=== PATIENT | male | born 1955 | race Caucasian/White ===

== ENCOUNTER 2021-04-28 18:23 | Emergency (ER) | payer OTHER ==
[~2021-04-28] VITALS: Ht 175.3 cm; Wt 72.7 kg
[2021-04-28 19:02] VITALS: Ht 175.3 cm; Wt 72.7 kg
[2021-04-28 19:54] LABS: BILIRUBIN 1+ (NEGATIVE); KETONE NEGATIVE (NEGATIVE); NITRITE NEGATIVE (NEGATIVE); UROBILINOGEN 8 mg/dL (< 2)
[2021-04-28 19:55] LABS: BACTERIA MODERATE HPF (NONE SEEN); SQUAMOUS EPITHELIAL OCC HPF (0-4); WHITE CELLS - URINE RARE HPF (0-1)
[2021-04-28 20:33] LABS: BASOPHILS 0.4 % (0-2); EOSINOPHILS 0 % (0-7); HEMATOCRIT 32.4 % (42.0-54.0); HEMOGLOBIN 11.3 g/dL (13.5-17.5); LYMPHOCYTES 15.1 % (15-50); MCH 28.4 pg (26.0-34.0); MCHC 34.7 g/dL (31.0-37.0); MCV 81.8 fL (80.0-100.0); MEAN PLATELET VOLUME 8.6 fL (7.4-10.4); MONOCYTES 9.6 % (2-11); NEUTROPHILS 74.9 % (40-80); PLATELET COUNT 83 10x3/uL (130-400); RBC 3.96 10x6/uL (4.20-6.10); WBC 4.8 10x3/uL (4.8-10.8)
[2021-04-28 20:43] LABS: APTT 31.8 SECONDS (22.8-39.4); INR 1.29 (0.85-1.17); PROTIME 14.9 SECONDS (11.6-15.0)
[2021-04-28 20:44] LABS: CALC OSMOLALITY 274 mosm/kg (275-300); CALCIUM 7.5 mg/dL (8.5-10.1); CARBON DIOXIDE 24.5 mmol/L (21.0-32.0); CHLORIDE - SERUM 102 mmol/L (98-107); CREATININE - SERUM 0.8 mg/dL (0.6-1.3); GLUCOSE 177 mg/dL (74-106); POTASSIUM - SERUM 3.5 mmol/L (3.5-5.1); SODIUM 136 mmol/L (136-145); UREA NITROGEN 9 mg/dL (7-18); eGFR NON AFRICAN AMERICAN > 90 mL/min (90-120)
[2021-04-28 21:02] LABS: ALBUMIN 2.1 g/dL (3.4-5.0); ALKALINE PHOSPHATASE 118 U/L (30-120); ALT (SGPT) 35 U/L (10-68); BILIRUBIN - TOTAL 1.02 mg/dL (0.2-1.3); CKMB 0.8 U/L (0.0-3.6); CREATINE KINASE 75 UL (21-232); PROTEIN - SERUM 6.2 g/dL (6.4-8.2); TROPONIN-I < 0.017 ng/mL (0.000-0.060)
[2021-04-28 21:34] LABS: PLATELET ESTIMATE DECREASED
[2021-04-28] MEDS ORDERED: BACTRIM DS TAB1 EAC1 PO (23:59)
[2021-04-29 00:36] VITALS: BP 148/80
== END 2021-04-29 00:25 ==
LOC: D.ER 18:23
PROVIDERS: Family Medicine
DX: R41.0 Disorientation, unspecified (principal); N39.0 Urinary tract infection, site not specified; R00.0 Tachycardia, unspecified; E83.51 Hypocalcemia; E11.40 Type 2 diabetes mellitus with diabetic neuropathy, unspecified; I10 Essential (primary) hypertension

== ENCOUNTER 2021-05-28 06:22 | Day surgery (SDC) | payer OTHER ==
[~2021-05-28] VITALS: Ht 167.6 cm; Wt 68.2 kg
[~2021-05-28 06:22] MED LIST: BACTRIM DS TAB1 EAC1 PO
[2021-05-28] MEDS ORDERED: BAYER CHEWABLE81 MG PO (07:46)
[2021-05-28] MEDS ORDERED: LOPRESSOR25 MG PO (07:47)
[2021-05-28] MEDS ORDERED: NEURONTIN600 MG PO (07:47)
[2021-05-28] MEDS ORDERED: PEPCID AC20 MG PO (07:47)
[2021-05-28 07:48] LABS: BASOPHILS 0.3 % (0-2); EOSINOPHILS 0 % (0-7); HEMATOCRIT 36.2 % (42.0-54.0); HEMOGLOBIN 11.9 g/dL (13.5-17.5); LYMPHOCYTES 7.6 % (15-50); MCH 27.5 pg (26.0-34.0); MCHC 32.9 g/dL (31.0-37.0); MCV 83.5 fL (80.0-100.0); MEAN PLATELET VOLUME 9.5 fL (7.4-10.4); MONOCYTES 4.4 % (2-11); NEUTROPHILS 87.7 % (40-80); RBC 4.33 10x6/uL (4.20-6.10); RDW 17.8 % (11.5-14.5); WBC 10.3 10x3/uL (4.8-10.8)
[2021-05-28] MEDS ORDERED: NOVOLIN 70/30 110 ML SC (07:48)
[2021-05-28] MEDS ORDERED: ZOCOR20 MG PO (07:48)
[2021-05-28 08:00] LABS: ANION GAP 15.8 mmol/L (8-16); CALCIUM 8.1 mg/dL (8.5-10.1); CARBON DIOXIDE 23.9 mmol/L (21.0-32.0); CREATININE - SERUM 1.3 mg/dL (0.6-1.3); POTASSIUM - SERUM 3.7 mmol/L (3.5-5.1)
[2021-05-28 08:03] LABS: INR 1.32 (0.85-1.17); PLATELET COUNT 211 10x3/uL (130-400); PROTIME 15.2 SECONDS (11.6-15.0)
[2021-05-28 08:16] VITALS: BP 112/66; Ht 167.6 cm; Wt 68.2 kg
[2021-05-28 09:45] LABS: APTT 39.8 SECONDS (22.8-39.4)
--- NOTE | 2021-05-28 12:19 | NUR ---
1159 VITAL SIGNS ARE BEING MONITORED ORDERED AND DOCUMENTED ON POST PROCEDURE FORM IN THE PAPER CHART.
--- NOTE | 2021-05-29 18:53 | HP ---
PATIENT: NELLIE TOM MEDICAL RECORD: [id number] ACCOUNT: [id number] LOCATION:D.CT : 53 ADMISSION DATE: 05/28/21 PCP: No PCP HISTORY AND PHYSICAL EXAMINATION CHIEF COMPLIANT: Paratracheal lymphadenopathy. HISTORY: I spoke to Dr. Clarke regarding this case. The patient has had weight loss, confusion, and fatigue. The patient has enlargement of some paratracheal lymph nodes. When I ask the interventional radiologist to see if the patient can undergo a CT-guided biopsy. If this cannot be done safely, then we would proceed with either a mediastinoscopy or a [place] procedure. We need to determine whether the biopsy is biopsy of malignant nodes or chronically infected nodes. ALLERGIES: PENICILLIN. MEDICATIONS: At the long-term include eczema lotion, Ensure liquid, famotidine, gabapentin, metoprolol, Novolin insulin, simvastatin. PAST MEDICAL AND SURGICAL HISTORY: Eczema, hypertension, gastroesophageal reflux, insulin-dependent diabetes mellitus as well as dyslipidemia, also neuropathy. REVIEW OF SYSTEMS: The patient is confused and cannot give me an adequate review of systems or any significant history. PHYSICAL EXAMINATION: GENERAL: He appears acutely ill. Also appears chronically ill. VITAL SIGNS: Reviewed. EARS: External ears appear normal. EYES: Extraocular movements are intact. NECK: Trachea is midline. CHEST: No intercostal retractions, rhonchi bilaterally. ABDOMEN: No peritonitis with movement. IMPRESSION: Paratracheal lymphadenopathy. PLAN: CT-guided biopsy of the paratracheal lymph nodes. ADDENDUM I have personally reviewed the CT images with Dr. Underwood. There is an enlarged paratracheal node on the right side. It is in very close apposition to the right subclavian artery and the right common carotid artery. It would be difficult to approach anteriorly and would require a transpulmonary approach, which is not favorable. There is a supraclavicular node; however, that should be reachable under CT guidance and that is the node that Dr. Underwood is going to go after. TRANSINT:[id number] Voice Confirmation ID: [id number] DOCUMENT ID: [id number] HISTORY AND PHYSICAL [id number] NELLIE TOM ROBERT MD at 0082 CC: TOÑO CLARKE [id number] DICTATION DATE: 05/28/21 0936 MORTUARY BEAUTICIAN: 05/28/21 0957 [facility] [place] 05/28/21 [facility] [address] [place] [address]
== END 2021-05-28 13:14 | disposition home or self-care (01) ==
LOC: D.CT 06:22
PROVIDERS: General Practice; ATTEND Surgery
DX: R59.0 Localized enlarged lymph nodes (principal); R91.8 Other nonspecific abnormal finding of lung field; J43.2 Centrilobular emphysema